=== PATIENT | female | born 1965 | race Caucasian/White ===

== ENCOUNTER 2020-10-16 14:45 | Emergency (ER) | payer OTHER ==
[~2020-10-16] VITALS: Ht 167.6 cm; Wt 69.0 kg
[2020-10-16 15:13] VITALS: BP 121/77
[2020-10-16] MEDS ORDERED: SODIUM CHLORIDE FLUSH 10ML SYR IVF ONE (16:00)
[2020-10-16 16:20] LABS: BASOPHILS % (AUTO) 1 % (0-1); EOSINOPHILS % (AUTO) 2 % (1-7); LYMPHOCYTES % (AUTO) 30 % (22-44); MEAN CORPUSCULAR HEMOGLOBIN 32.4 pg (27.0-34.8); MEAN CORPUSCULAR HGB CONC 33.7 g/dL (32.4-35.8); MEAN PLATELET VOLUME 7.8 fL (7.4-10.4); MONOCYTES % (AUTO) 6 % (2-9); NEUTROPHILS % (AUTO) 61 % (42-75); PLATELET COUNT 252 x10^3/uL (130-400); RED CELL DISTRIBUTION WIDTH 14.5 % (9.6-15.2)
[2020-10-16 16:31] LABS: ALANINE AMINOTRANSFERASE 33 U/L (12-78); ALBUMIN 3.6 g/dL (3.4-5.0); ANION GAP 4 mmol/L (5-15); CALCIUM 8.6 mg/dL (8.5-10.1); CHLORIDE 110 mmol/L (98-107); CREATININE 0.72 mg/dL (0.55-1.02)
[2020-10-16 16:35] LABS: ALKALINE PHOSPHATASE 155 U/L (45-117); BILIRUBIN,TOTAL 0.7 mg/dL (0.2-1.0); TOTAL PROTEIN 7.4 g/dL (6.4-8.2); TROPONIN I < 0.015 ng/mL (0.000-0.045)
[2020-10-16 18:14] LABS: TROPONIN I < 0.015 ng/mL (0.000-0.045)
== END 2020-10-16 18:48 | disposition home or self-care (01) ==
LOC: ED 16:59
DX: R07.89 Other chest pain (principal)
CPT/HCPCS: 36415; 71045; 80053; 84484; 85025; 93005; 99285